=== PATIENT | female | born 1995 | race Caucasian/White ===

== ENCOUNTER 2017-02-21 23:56 | Emergency (ER) | payer OTHER ==
[2017-02-22] MEDS ORDERED: Ketorolac INJ* 30 MG/ML 1 ML VIAL IV PUSH ONE (00:30)
[2017-02-22] MEDS ORDERED: NS 0.9% 1000 ML* 1,000 ML IV ONE (00:30)
[2017-02-22 00:48] LABS: Hematocrit 34 % (35-47); Hemoglobin 11.1 g/dl (12.0-16.0); Mean Corpuscular HGB Conc 33 g/dl (31-36); Mean Corpuscular Hemoglobin 28 pg (27-31); Mean Corpuscular Volume 85 fL (80-97); Mean Platelet Volume 9 um3 (7.4-10.4); Red Blood Count 3.99 10^6/ul (4.0-5.4); Red Cell Distribution Width 14 % (10.5-15); White Blood Count 8.2 10^3/ul (3.5-10.8)
[2017-02-22 00:49] LABS: Potassium 3.4 mmol/L (3.5-5.0)
[2017-02-22 00:50] LABS: EGFR African American 138.6 (>60); EGFR Non-African American 107.8 (>60)
[2017-02-22 02:58] LABS: UR Preg Internal Control QC Line Present
[2017-02-22 03:01] LABS: Albumin 3.9 g/dL (3.2-5.2); Calcium 9.6 mg/dL (8.6-10.3); Globulin 3.5 g/dL (2-4); Total Bilirubin 0.5 mg/dL (0.2-1.0); Total Protein 7.4 g/dL (6.4-8.9)
[2017-02-22 03:01] LABS: Urine Bacteria 1+ (Absent); Urine Bilirubin Negative (Negative); Urine Glucose Negative (Negative); Urine Nitrite Negative (Negative)
--- NOTE | 2017-02-22 03:34 | ED ---
Merle Ross Rebecca, scribed for La Nena Ayers MD on 02/22/17 at 0031 . Abdominal Pain/Female - HPI Summary HPI Summary: Pt is a 21 y/o F accompanied by 2 friends who presents to ED c/o right-sided abdominal pain. Pain began suddenly at 1700 today and have been constant since onset, worsening at 2230. Pain is in the RUQ with radiation to the back, characterized as sharp. Currently ranked 5/10, though she notes extreme fluctuations in pain throughout the course. Sx aggravated and alleviated by nothing. Additionally c/o abdominal bloating and slight nausea earlier today. Denies constipation, vomiting. Last BM was yesterday, which she reports as normal. PMHx Celiac Disease and kidney stones. Is unsure if current presentation is similar to symptoms with previous kidney stone. Allergy to Sulfa Abx. - History of Current Complaint Chief Complaint: EDAbdPain Stated Complaint: ABD PAIN Time Seen by Provider: 02/22/17 00:25 Hx Obtained From: Patient Hx Last Menstrual Period: on continuous control, no menses ?: No Onset/Duration: Sudden Onset, Still Present, Worse Since - 2230 Timing: Constant Severity Initially: Moderate Severity Currently: Moderate Pain Intensity: 5 Pain Scale Used: 0-10 Numeric Location: Discrete At: RUQ Radiates: Yes Radiates to: Back Character: Sharp Aggravating Factor(s): Nothing Alleviating Factor(s): Nothing Associated Signs and Symptoms: Positive: Nausea, Other: - Abdominal bloating. Negative: Fever, Constipation, Vomiting, Diarrhea Allergies/Adverse Reactions: Allergies Allergy/AdvReac Type Severity Reaction Status Date / Time Gluten Meal Allergy Unknown Verified 02/22/17 00:21 Reaction Details Sulfa Antibiotics Allergy Unknown Verified 02/22/17 00:21 Reaction Details PMH/Surg Hx/FS Hx/Imm Hx Previously Healthy: Yes Endocrine/Hematology History: Denies: Hx Diabetes GI History: Reports: Other GI Disorders - Hx Celiac Disease dx after biopsy History: Reports: Hx Kidney Stones - Surgical History Surgery Procedure, Year, and Place: THUMB SX Infectious Disease History: No Infectious Disease History: Denies: Traveled Outside the [place] in Last 30 Days - Family History Known Family History: Positive: Diabetes, Other - Kidney stones (grandfather) - Social History Occupation: Student Alcohol Use: Occasionally Substance Use Type: Reports: None Hx Tobacco Use: No Smoking Status (MU): Never Smoked Tobacco Review of Systems Constitutional: Negative Cardiovascular: Negative Respiratory: Negative Positive: Abdominal Pain - RUQ with radiation to the back, Nausea, Other - Abdominal bloating. Negative: Vomiting Positive: other - Denies constipation. Negative: hematuria All Other Systems Reviewed And Are Negative: Yes Physical Exam Triage Information Reviewed: Yes Vital Signs On Initial Exam: Initial Vitals Temp Pulse Resp BP Pulse Ox 96.3 F 77 18 118/72 100 02/21/17 23:59 02/21/17 23:59 02/21/17 23:59 02/21/17 23:59 02/21/17 23:59 Vital Signs Reviewed: Yes Appearance: Positive: Well-Appearing, Well-Nourished, Pain Distress - Mild Skin: Positive: Warm, Skin Color Reflects Adequate Perfusion, Dry Eyes: Positive: Conjunctiva Clear ENT: Positive: Normal ENT inspection Respiratory/Lung Sounds: Positive: Clear to Auscultation, Breath Sounds Present , Other - No respiratory distress Cardiovascular: Positive: RRR, Other - Brisk capillary refill, normal pulses. Negative: Murmur Abdomen Description: Positive: No Organomegaly, Soft, CVA Tenderness (R). Negative: Nontender - Tendernessin the RUQ Bowel Sounds: Positive: Present Musculoskeletal: Positive: Strength/ROM Intact Neurological: Positive: Alert, Oriented to Person Place, Time, Other - Normal muscle tone. Negative: Facial Droop, Focal Deficit @, Slurred Speech Psychiatric: Positive: Normal Diagnostics - Vital Signs Vital Signs Temp Pulse Resp BP Pulse Ox 02/22/17 00:20 97.9 F 70 18 112/74 100 02/21/17 23:59 96.3 F 77 18 118/72 100 - Laboratory Lab Results: Lab Results 02/22/17 02/22/17 Range/Units 00:11 00:11 WBC 8.2 (3.5-10.8) 10^3/ul RBC 3.99 L (4.0-5.4) 10^6/ul Hgb 11.1 L (12.0-16.0) g/dl Hct 34 L (35-47) % MCV 85 (80-97) fL MCH 28 (27-31) pg MCHC 33 (31-36) g/dl RDW 14 (10.5-15) % Plt Count 333 (150-450) 10^3/ul MPV 9 (7.4-10.4) um3 Neut % (Auto) 40.5 (38-83) % Lymph % (Auto) 50.9 H (25-47) % [place] % (Auto) 5.7 (1-9) % Eos % (Auto) 2.1 (0-6) % Baso % (Auto) 0.8 (0-2) % Absolute Neuts (auto) 3.3 (1.5-7.7) 10^3/ul Absolute Lymphs (auto) 4.2 (1.0-4.8) 10^3/ul Absolute Monos (auto) 0.5 (0-0.8) 10^3/ul Absolute Eos (auto) 0.2 (0-0.6) 10^3/ul Absolute Basos (auto) 0.1 (0-0.2) 10^3/ul Absolute Nucleated RBC 0 10^3/ul Nucleated RBC % 0 Sodium 141 (133-145) mmol/L Potassium 3.4 L (3.5-5.0) mmol/L Chloride 102 (101-111) mmol/L Carbon Dioxide 25 (22-32) mmol/L Anion Gap 19 H (2-11) mmol/L BUN 7 (6-24) mg/dL Creatinine 0.70 (0.51-0.95) mg/dL Est GFR ( Amer) 138.6 (>60) Est GFR (Non-Af Amer) 107.8 (>60) BUN/Creatinine Ratio 10.0 (8-20) Glucose 97 (70-100) mg/dL Calcium Pending Total Bilirubin Pending AST Pending ALT Pending Alkaline Phosphatase Pending Total Protein Pending Albumin Pending Globulin Pending Albumin/Globulin Ratio Pending Result Diagrams: 02/22/17 00:11 02/22/17 00:11 Lab Statement: Any lab studies that have been ordered have been reviewed, and results considered in the medical decision making process. - CT CT Abd/Pel CT Interpretation Completed By: Radiologist - Large amount of diffuse colonic gas and scattered liquid stool could represent ileus and/or a diarrheal illness. Mild central canal narrowing at L4-5 degenerated disc herniation. Re-Evaluation - Re-Evaluation First Eval Re-Evaluation Time: 02:59 Change: Improved Comment: Discussed CT findings with the pt. Explained to pt that she can be D/C after UA has been performed. Reports pain has improved, currently 0/10. Abdominal Pain Fem Course/Dx - Course Course Of Treatment: Pt is a 21 y/o F accompanied by 2 friends with a CC of RUQ pain with radiation to the back since 1700 today, worsening at 2230. Additionally c/o abdominal cramping and slight nausea. Denies constipation, vomiting. Reports last BM was yesterday, which she states is normal. PMHx Celiac Disease and kidney stones (slightly over 1 year ago). FHx kidney stones ( grandfather). Pt medication list reviewed this visit. Allergies noted. Anion gap [address] Abd/Pel reveals "Large amount of diffuse colonic gas and scattered liquid stool could represent ileus and/or a diarrheal illness. Mild central canal narrowing at L4-5 degenerated disc herniation." UA revealed: appearance: cloudy, color: yellow, blood: 2+, leukocyte esterase: 1+, bacteria: 1+, hyaline casts: present H. Pt was administered Toradol in the course of the ED. Pt will be D/C to home with Dx of abdominal pain and ileus with a follow up with her PCP. - Diagnoses Differential Diagnosis: Positive: Appendicitis, Bowel Obstruction, Gall Bladder Disease, Peptic Ulcer Disease, Renal Colic, Urinary Tract Infection Provider Diagnoses: Abdominal pain, Ileus, Hematuria Discharge - Discharge Plan Condition: Stable Disposition: HOME Patient Education Materials: Hematuria (ED), Abdominal Pain (ED), Ileus (ED) Referrals: [facility] [Primary Care Provider] - 2 Days Additional Instructions: You were given 30 mg of Toradol IV with complete relief of your pain. Your CT shows an ileus, but no kidney stone. Your urine shows some blood and some white blood cells so you may have a urinary tract infection. We will contact you if you need antibiotics based on the urine culture. You will also need to follow up as to the cause of the hidden blood in your urine. Return to the ED for any new or worsening symptoms. The documentation as recorded by the Merle wright Rebecca accurately reflects the service I personally performed and the decisions made by , La Nena Ayers MD.
[2017-02-22 04:39] VITALS: BP 96/50
--- NOTE | 2017-02-22 07:58 | RAD ---
CLINICAL HISTORY: Right flank pain COMPARISON: Similar examination dated November 18, 2015 TECHNIQUE: Noncontrast CT examination of the abdomen and pelvis from the lung bases through the initial tuberosities. FINDINGS: VISUALIZED LUNG BASES: The visualized lung bases are grossly clear. There is no pleural effusion. ABDOMEN AND PELVIS: Evaluation of the solid organs and vasculature is limited without intravenous contrast. The liver, spleen, pancreas and adrenal glands are grossly normal in appearance. The gallbladder is normal. At the lower pole the right kidney there is a stable fluid density structure with a small amount of hyperdense material in the dependent portion. Otherwise the kidneys are normal in appearance without focal mass, calcification or signs of hydronephrosis. The small bowel is not distended.The patient's normal appendix is identified in the right lower quadrant with gas in the lumen measuring 6 mm in diameter (axial image 99 and coronal image 35). There is mild dilatation throughout the length of the colon, though not to a pathologic degree. The transverse colon exhibits a maximum diameter of 5.4 cm. There is a large amount of gas seen throughout the colon with air-fluid levels at the cecum. There is no pathologic bowel wall thickening or significant pericolonic fat stranding. There is no gross retroperitoneal or mesenteric lymphadenopathy. The pelvic viscera is normal in appearance. The abdominal aorta and iliac arteries are normal in course and diameter. There is loss of intervertebral disc height at L5/S1 with the appearance of mild broad-based disc protrusion at this level.There are no sinister bone lesions. IMPRESSION: 1. There are no renal calculi or signs of hydroureteronephrosis bilaterally. 2. The gas-filled colon is minimally distended, but not to a pathologic degree.
== END 2017-02-22 04:35 | disposition home or self-care (01) ==
LOC: ED 23:56
DX: R10.11 Right upper quadrant pain (principal); K56.7 Ileus, unspecified; R10.9 Unspecified abdominal pain; R31.9 Hematuria, unspecified; R11.0 Nausea
CPT/HCPCS: 36415; 74176; 80053; 81003; 81015; 81025; 85025; 87086; 99283; J1885

== ENCOUNTER 2017-09-10 22:01 | Inpatient (IN) | payer OTHER ==
[2017-09-10] MEDS ORDERED: NS 0.9% 1000 ML* 1,000 ML IV ONE (22:45)
[2017-09-10] MEDS ORDERED: LORazepam INJ* 2 MG/ML 1 ML VIAL IV ONE (22:45)
[2017-09-10 23:25] LABS: Hematocrit 34 % (35-47); Hemoglobin 11.6 g/dl (12.0-16.0); Mean Corpuscular HGB Conc 34 g/dl (31-36); Mean Corpuscular Hemoglobin 31 pg (27-31); Mean Corpuscular Volume 91 fL (80-97); Mean Platelet Volume 9 um3 (7.4-10.4); Red Blood Count 3.77 10^6/ul (4.0-5.4); Red Cell Distribution Width 14 % (10.5-15); White Blood Count 7.9 10^3/ul (3.5-10.8)
[2017-09-10 23:40] LABS: ALT 8 U/L (7-52); AST 15 U/L (13-39); Acetaminophen < 15 mcg/mL; Albumin 3.7 g/dL (3.2-5.2); Alcohol < 10 mg/dL (<10); Alkaline Phosphatase 40 U/L (34-104); Anion Gap 7 mmol/L (2-11); BUN/Creatinine Ratio 8.7 (8-20); Blood Urea Nitrogen 6 mg/dL (6-24); CO2 Carbon Dioxide 23 mmol/L (22-32); Calcium 8.4 mg/dL (8.6-10.3); Chloride 103 mmol/L (101-111); EGFR African American 139.5 (>60); EGFR Non-African American 108.5 (>60); Globulin 2.9 g/dL (2-4); Glucose 74 mg/dL (70-100); Magnesium 1.6 mg/dL (1.9-2.7); Potassium 3.3 mmol/L (3.5-5.0); Salicylate < 2.50 mg/dL (<30); Sodium 133 mmol/L (133-145); Total Protein 6.6 g/dL (6.4-8.9)
[2017-09-10 23:54] LABS: TSH (Thyroid Stimulating Horm) 28.71 mcIU/mL (0.34-5.60)
[2017-09-11 00:08] LABS: Urine Bacteria 1+ (Absent); Urine Bilirubin Negative (Negative); Urine Glucose Negative (Negative); Urine Nitrite Negative (Negative)
[2017-09-11 00:13] LABS: PCO2 Arterial 33 mmHg (35-45)
[2017-09-11] MEDS ORDERED: Cephalexin CAP* 500 MG PO ONE (00:29)
[2017-09-11 00:58] LABS: Benzodiazepine Urine Screen None Detected (None Detect)
[2017-09-11] MEDS ORDERED: Potassium Chlor TAB* 20 MEQ TAB.ER PO ONE (02:04)
--- NOTE | 2017-09-11 02:05 | ED ---
Mert Ross Benjamin, scribed for Sánchez Franco MD on 09/10/17 at 2314 . Substance Abuse/Use - HPI Summary HPI Summary: 22yo female BIBA for overdosing on Benadryl. Pt reportedly took between 900- 1200mg Benadryl. Pt denies any pain. Denies N/V. Per friend, pt was also hallucinating. - History Of Current Complaint Chief Complaint: EDOverdose Stated Complaint: OVERDOSE Hx Obtained From: Patient, Other: - roommate Hx Last Menstrual Period: on continuous control, no menses ?: No Ingestion History: Type/Name Of Drug - Benadryl, Amount Ingested - 900-1200mg Overdose Characteristics: Oral Timing Of Abuse: Binge Use Severity Initially: Moderate Severity Currently: Moderate Aggravating Factor(s): Recent Stress Alleviating Factor(s): Nothing Associated Signs And Symptoms: Hallucinating Related Hx: Suicidal - Allergies/Home Medications Allergies/Adverse Reactions: Allergies Allergy/AdvReac Type Severity Reaction Status Date / Time Gluten Meal Allergy Unknown Verified 02/22/17 00:21 Reaction Details Sulfa Antibiotics Allergy Unknown Verified 02/22/17 00:21 Reaction Details PMH/Surg Hx/FS Hx/Imm Hx Endocrine/Hematology History: Denies: Hx Diabetes GI History: Reports: Other GI Disorders - Hx Celiac Disease dx after biopsy History: Reports: Hx Kidney Stones - Surgical History Surgery Procedure, Year, and Place: THUMB SX Infectious Disease History: No Infectious Disease History: Denies: Traveled Outside the [place] in Last 30 Days - Family History Known Family History: Positive: Diabetes, Other - Kidney stones (grandfather) - Social History Occupation: Student Lives: Dormitory/Roommates Alcohol Use: Occasionally Substance Use Type: Reports: None Hx Tobacco Use: No Smoking Status (MU): Never Smoked Tobacco Review of Systems Constitutional: Negative Eyes: Negative ENT: Negative Cardiovascular: Negative Negative: Chest Pain Respiratory: Negative Negative: Shortness Of Breath Gastrointestinal: Negative Genitourinary: Negative Musculoskeletal: Negative Skin: Negative Neurological: Negative Positive: Depressed, Other - SI All Other Systems Reviewed And Are Negative: Yes Physical Exam - Summary Physical Exam Summary: Appearance: Slightly confused appearance, slowed speech. Skin: Mild cyanosis of the tips of the fingers bilaterally. No perioral cyanosis. No erythema. Eyes: EOMI SHIRA. Pulpils are 4mm dilated and brisk ENT: Normal Neck: Supple, nontender. No neck masses. Respiratory: Clear to auscultation Cardiovascular: Tachycardic on monitor. normal S1 and S2. Abdomen: Soft, nontender Bowel: Present Musculoskeletal: Normal, Strength/ROM Intact. Moving all four extremities. Neurological: Normal, A&Ox3. Able to follow commands. Slightly confused. Slightly hesitant to speak. Psychiatric: Normal Triage Information Reviewed: Yes Vital Signs On Initial Exam: Initial Vitals BP 132/92 09/10/17 22:09 Vital Signs Reviewed: Yes - Joey Coma Scale Coma Scale Total: 15 Diagnostics - Vital Signs Vital Signs Temp Pulse Resp BP Pulse Ox 09/10/17 22:11 99.2 F 115 15 132/92 100 09/10/17 22:10 109 100 09/10/17 22:09 132/92 - Laboratory Lab Results: Lab Results 09/10/17 09/10/17 09/10/17 Range/Units 23:11 23:11 23:11 WBC 7.9 (3.5-10.8) 10^3/ul RBC 3.77 L (4.0-5.4) 10^6/ul Hgb 11.6 L (12.0-16.0) g/dl Hct 34 L (35-47) % MCV 91 (80-97) fL MCH 31 (27-31) pg MCHC 34 (31-36) g/dl RDW 14 (10.5-15) % Plt Count 278 (150-450) 10^3/ul MPV 9 (7.4-10.4) um3 Neut % (Auto) 63.7 (38-83) % Lymph % (Auto) 29.4 (25-47) % Mora % (Auto) 5.1 (1-9) % Eos % (Auto) 1.0 (0-6) % Baso % (Auto) 0.8 (0-2) % Absolute Neuts (auto) 5.1 (1.5-7.7) 10^3/ul Absolute Lymphs (auto) 2.3 (1.0-4.8) 10^3/ul Absolute Monos (auto) 0.4 (0-0.8) 10^3/ul Absolute Eos (auto) 0.1 (0-0.6) 10^3/ul Absolute Basos (auto) 0.1 (0-0.2) 10^3/ul Absolute Nucleated RBC 0 10^3/ul Nucleated RBC % 0 ABG pH (7.35-7.45) ABG pCO2 (35-45) mmHg ABG pO2 (80-100) mmHg ABG HCO3 (19-31) mmol/L ABG O2 Saturation (95-98) % ABG Base Excess (-2.0-2.0) Methemoglobin 0.5 (LESS THAN 2) % Sodium 133 (133-145) mmol/L Potassium 3.3 L (3.5-5.0) mmol/L Chloride 103 (101-111) mmol/L Carbon Dioxide 23 (22-32) mmol/L Anion Gap 7 (2-11) mmol/L BUN 6 (6-24) mg/dL Creatinine 0.69 (0.51-0.95) mg/dL Est GFR ( Amer) 139.5 (>60) Est GFR (Non-Af Amer) 108.5 (>60) BUN/Creatinine Ratio 8.7 (8-20) Glucose 74 (70-100) mg/dL Lactic Acid 1.7 (0.5-2.0) mmol/L Calcium 8.4 L (8.6-10.3) mg/dL Magnesium 1.6 L (1.9-2.7) mg/dL Total Bilirubin 0.90 (0.2-1.0) mg/dL AST 15 (13-39) U/L ALT 8 (7-52) U/L Alkaline Phosphatase 40 (34-104) U/L Total Protein 6.6 (6.4-8.9) g/dL Albumin 3.7 (3.2-5.2) g/dL Globulin 2.9 (2-4) g/dL Albumin/Globulin Ratio 1.3 (1-3) TSH 28.71 H (0.34-5.60) mcIU/mL Beta HCG, Quant < 0.60 mIU/mL Urine Color Urine Appearance Urine pH (5-9) Ur Specific Newton (1.010-1.030) Urine Protein (Negative) Urine Ketones (Negative) Urine Blood (Negative) Urine Nitrate (Negative) Urine Bilirubin (Negative) Urine Urobilinogen (Negative) Ur Leukocyte Esterase (Negative) Urine WBC (Auto) (Absent) Urine RBC (Auto) (Absent) Ur Squamous Epith Cells (Absent) Urine Bacteria (Absent) Urine Glucose (Negative) Salicylates < 2.50 (<30) mg/dL Urine Opiates Screen (None Detect) Acetaminophen < 15 mcg/mL Ur Barbiturates Screen (None Detect) Ur Phencyclidine Scrn (None Detect) Ur Amphetamines Screen (None Detect) U Benzodiazepines Scrn (None Detect) Urine Cocaine Screen (None Detect) U Cannabinoids Screen (None Detect) Serum Alcohol < 10 (<10) mg/dL 09/10/17 09/10/17 09/11/17 Range/Units 23:43 23:43 00:04 WBC (3.5-10.8) 10^3/ul RBC (4.0-5.4) 10^6/ul Hgb (12.0-16.0) g/dl Hct (35-47) % MCV (80-97) fL MCH (27-31) pg MCHC (31-36) g/dl RDW (10.5-15) % Plt Count (150-450) 10^3/ul MPV (7.4-10.4) um3 Neut % (Auto) (38-83) % Lymph % (Auto) (25-47) % Mora % (Auto) (1-9) % Eos % (Auto) (0-6) % Baso % (Auto) (0-2) % Absolute Neuts (auto) (1.5-7.7) 10^3/ul Absolute Lymphs (auto) (1.0-4.8) 10^3/ul Absolute Monos (auto) (0-0.8) 10^3/ul Absolute Eos (auto) (0-0.6) 10^3/ul Absolute Basos (auto) (0-0.2) 10^3/ul Absolute Nucleated RBC 10^3/ul Nucleated RBC % ABG pH 7.45 (7.35-7.45) ABG pCO2 33 L (35-45) mmHg ABG pO2 101 H (80-100) mmHg ABG HCO3 24.5 (19-31) mmol/L ABG O2 Saturation 98.1 H (95-98) % ABG Base Excess -0.6 (-2.0-2.0) Methemoglobin (LESS THAN 2) % Sodium (133-145) mmol/L Potassium (3.5-5.0) mmol/L Chloride (101-111) mmol/L Carbon Dioxide (22-32) mmol/L Anion Gap (2-11) mmol/L BUN (6-24) mg/dL Creatinine (0.51-0.95) mg/dL Est GFR ( Amer) (>60) Est GFR (Non-Af Amer) (>60) BUN/Creatinine Ratio (8-20) Glucose (70-100) mg/dL Lactic Acid (0.5-2.0) mmol/L Calcium (8.6-10.3) mg/dL Magnesium (1.9-2.7) mg/dL Total Bilirubin (0.2-1.0) mg/dL AST (13-39) U/L ALT (7-52) U/L Alkaline Phosphatase (34-104) U/L Total Protein (6.4-8.9) g/dL Albumin (3.2-5.2) g/dL Globulin (2-4) g/dL Albumin/Globulin Ratio (1-3) TSH (0.34-5.60) mcIU/mL Beta HCG, Quant mIU/mL Urine Color Yellow Urine Appearance Cloudy Urine pH 7.0 (5-9) Ur Specific [place] 1.011 (1.010-1.030) Urine Protein Negative (Negative) Urine Ketones Negative (Negative) Urine Blood 1+ H (Negative) Urine Nitrate Negative (Negative) Urine Bilirubin Negative (Negative) Urine Urobilinogen Negative (Negative) Ur Leukocyte Esterase 3+ H (Negative) Urine WBC (Auto) 3+(>20/hpf) H (Absent) Urine RBC (Auto) 1+(3-5/hpf) H (Absent) Ur Squamous Epith Cells Present H (Absent) Urine Bacteria 1+ H (Absent) Urine Glucose Negative (Negative) Salicylates (<30) mg/dL Urine Opiates Screen None detected (None Detect) Acetaminophen mcg/mL Ur Barbiturates Screen None detected (None Detect) Ur Phencyclidine Scrn None detected (None Detect) Ur Amphetamines Screen None detected (None Detect) U Benzodiazepines Scrn None detected (None Detect) Urine Cocaine Screen None detected (None Detect) U Cannabinoids Screen None detected (None Detect) Serum Alcohol (<10) mg/dL Result Diagrams: 09/10/17 23:11 09/10/17 23:11 Lab Statement: Any lab studies that have been ordered have been reviewed, and results considered in the medical decision making process. - CT CT Brain CT Interpretation: No Acute Changes CT Interpretation Completed By: Radiologist - ED physician has reviewed this radiology report and agrees. - EKG 2252. Cardiac Rate: Tachycardia EKG Rhythm: Sinus Tachycardia - 107bpm EKG Interpretation: borderline T wave abnormalities, borderline prolonged QT interval Re-Evaluation - Re-Evaluation First Eval Re-Evaluation Time: 02:02 - persistent tachycardia, unchanged mental status Change: Improved Course/Dx - Course Course Of Treatment: admitetd for futher treatment and monitoring. CT negative, labs show no acute abnormalities. 6-12 hour obs according to [facility]. - Diagnoses Provider Diagnoses: Altered mental status, Overdose - Physician Notifications Discussed Care Of Patient With: Yaakov Collier Time Discussed With Above Provider: 02:05 Discharge - Discharge Plan Condition: Guarded Disposition: ADMITTED TO [facility] Referrals: [facility],[place] [Medical Doctor] - The documentation as recorded by the Mert wright Benjamin accurately reflects the service I personally performed and the decisions made by me, Sánchez Franco MD.
[2017-09-11] MEDS ORDERED: Acetaminophen TAB* 325 MG PO PRN (02:08)
[2017-09-11] MEDS ORDERED: LORazepam INJ* 2 MG/ML 1 ML VIAL IV PRN (02:08)
[2017-09-11] MEDS ORDERED: Magnesium Sulfate IV* 3 GM in NS 0.9% 100 ML* 100 ML IVPB ONE (02:08)
[2017-09-11] MEDS ORDERED: Magnesium Sulfate 1 GM IV* 1 GM/100 ML BAG IV ONE (04:30)
[2017-09-11] MEDS ORDERED: Magnesium Sulfate 2 GM IV IVPB ONE (05:00)
--- NOTE | 2017-09-11 05:03 | HP ---
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 She is accompanied by her roommate who gives this information, in addition to ED staff. Deni reportedly had a falling out with a male friend, purchased 5-6 boxes of 12 pills each of Zzzquil (25mg diphenhydramine tablets) and consumed them all at ~2030. By 2100 she had called her father in [place] who then called EMS and spoke with her roommate. Ms Caceres is lying in her ED bed varying between staring into space, startling easily, and reacting to/interacting with visual hallucinations. Her speech is stuttering and completely incoherent. PMedHx depression, unknown if prior suicide attempts Ambulatory Orders Nursing to reconcile. Levofloxacin TAB* [Levaquin TAB*] 750 mg PO DAILY #10 tab 11/18/15 Ondansetron ODT TAB* [Zofran Odt TAB*] 4 mg PO Q6H PRN #20 tab.odt 11/18/15 oxyCODONE/Acetamin 5/325 MG* [Percocet 5/325 TAB*] 1 tab PO Q4H PRN #20 tab MDD 6 11/18/15 Allergies Gluten Meal Allergy (Verified 02/22/17 00:21) Unknown Reaction Details Sulfa Antibiotics Allergy (Verified 02/22/17 00:21) Unknown Reaction Details PSurgHx unobtainable SocHx: [employer] student; single, no children, lives with a roommate; full code status; otherwise unobtainable FamHx: unobtainable ROS: as above, otherwise reviewed and all were negative vitals: Vital Signs Temp 36.6 C 09/11/17 03:50 Pulse 123 09/11/17 03:50 Resp 28 09/11/17 03:50 BP 127/79 09/11/17 03:50 Pulse Ox 100 09/11/17 03:50 Intake & Output 09/10/17 09/10/17 09/11/17 11:59 23:59 11:59 Intake Total 1000 Balance 1000 Weight 54.431 kg 53.206 kg Intake: IV Fluids 1000 Constitutional: NAD, normally developed, well-nourished white female HEENM: atraumatic; sclera/conjunctiva: anicteric/clear; hearing: unable to accurately assess; oropharynx: clear, mucosa tacky Neck: soft tissue: non-tender; thyroid: normal Pulmonary: clear to auscultation bilaterally, good aeration, no accessory muscle use CV: RR/RR, normal S1S2, no carotid bruit, no jugular venous distention, 2+ B DP/ PT, no edema Abdominal: soft, non-distended, non-tender, no rebound/guarding/rigidity, normoactive bowel sounds, no hepatosplenomegaly or masses, no costovertebral angle tenderness Musculoskeletal: general: grossly intact, no palpable tenderness Integumental: normal appearance and texture of exposed skin, no flushing noted Psychiatric orientation: alert, awake, disoriented affect: fidgety mood: calm to anxious eye contact: poor content: absent insight: currently absent Testing: Lab Results 09/10/17 09/10/17 09/10/17 Range/Units 23:11 23:11 23:11 WBC 7.9 (3.5-10.8) 10^3/ul RBC 3.77 L (4.0-5.4) 10^6/ul Hgb 11.6 L (12.0-16.0) g/dl Hct 34 L (35-47) % MCV 91 (80-97) fL MCH 31 (27-31) pg MCHC 34 (31-36) g/dl RDW 14 (10.5-15) % Plt Count 278 (150-450) 10^3/ul MPV 9 (7.4-10.4) um3 Neut % (Auto) 63.7 (38-83) % Lymph % (Auto) 29.4 (25-47) % [place] % (Auto) 5.1 (1-9) % Eos % (Auto) 1.0 (0-6) % Baso % (Auto) 0.8 (0-2) % Absolute Neuts (auto) 5.1 (1.5-7.7) 10^3/ul Absolute Lymphs (auto) 2.3 (1.0-4.8) 10^3/ul Absolute Monos (auto) 0.4 (0-0.8) 10^3/ul Absolute Eos (auto) 0.1 (0-0.6) 10^3/ul Absolute Basos (auto) 0.1 (0-0.2) 10^3/ul Absolute Nucleated RBC 0 10^3/ul Nucleated RBC % 0 ABG pH (7.35-7.45) ABG pCO2 (35-45) mmHg ABG pO2 (80-100) mmHg ABG HCO3 (19-31) mmol/L ABG O2 Saturation (95-98) % ABG Base Excess (-2.0-2.0) Methemoglobin 0.5 (LESS THAN 2) % Sodium 133 (133-145) mmol/L Potassium 3.3 L (3.5-5.0) mmol/L Chloride 103 (101-111) mmol/L Carbon Dioxide 23 (22-32) mmol/L Anion Gap 7 (2-11) mmol/L BUN 6 (6-24) mg/dL Creatinine 0.69 (0.51-0.95) mg/dL Est GFR ( Amer) 139.5 (>60) Est GFR (Non-Af Amer) 108.5 (>60) BUN/Creatinine Ratio 8.7 (8-20) Glucose 74 (70-100) mg/dL POC Glucose (mg/dL) (70-100) mg/dL Lactic Acid 1.7 (0.5-2.0) mmol/L Calcium 8.4 L (8.6-10.3) mg/dL Magnesium 1.6 L (1.9-2.7) mg/dL Total Bilirubin 0.90 (0.2-1.0) mg/dL AST 15 (13-39) U/L ALT 8 (7-52) U/L Alkaline Phosphatase 40 (34-104) U/L Total Protein 6.6 (6.4-8.9) g/dL Albumin 3.7 (3.2-5.2) g/dL Globulin 2.9 (2-4) g/dL Albumin/Globulin Ratio 1.3 (1-3) TSH 28.71 H (0.34-5.60) mcIU/mL Beta HCG, Quant < 0.60 mIU/mL Urine Color Urine Appearance Urine pH (5-9) Ur Specific [place] (1.010-1.030) Urine Protein (Negative) Urine Ketones (Negative) Urine Blood (Negative) Urine Nitrate (Negative) Urine Bilirubin (Negative) Urine Urobilinogen (Negative) Ur Leukocyte Esterase (Negative) Urine WBC (Auto) (Absent) Urine RBC (Auto) (Absent) Ur Squamous Epith Cells (Absent) Urine Bacteria (Absent) Urine Glucose (Negative) Salicylates < 2.50 (<30) mg/dL Urine Opiates Screen (None Detect) Acetaminophen < 15 mcg/mL Ur Barbiturates Screen (None Detect) Ur Phencyclidine Scrn (None Detect) Ur Amphetamines Screen (None Detect) U Benzodiazepines Scrn (None Detect) Urine Cocaine Screen (None Detect) U Cannabinoids Screen (None Detect) Serum Alcohol < 10 (<10) mg/dL 09/10/17 09/10/17 09/11/17 Range/Units 23:43 23:43 00:04 WBC (3.5-10.8) 10^3/ul RBC (4.0-5.4) 10^6/ul Hgb (12.0-16.0) g/dl Hct (35-47) % MCV (80-97) fL MCH (27-31) pg MCHC (31-36) g/dl RDW (10.5-15) % Plt Count (150-450) 10^3/ul MPV (7.4-10.4) um3 Neut % (Auto) (38-83) % Lymph % (Auto) (25-47) % [place] % (Auto) (1-9) % Eos % (Auto) (0-6) % Baso % (Auto) (0-2) % Absolute Neuts (auto) (1.5-7.7) 10^3/ul Absolute Lymphs (auto) (1.0-4.8) 10^3/ul Absolute Monos (auto) (0-0.8) 10^3/ul Absolute Eos (auto) (0-0.6) 10^3/ul Absolute Basos (auto) (0-0.2) 10^3/ul Absolute Nucleated RBC 10^3/ul Nucleated RBC % ABG pH 7.45 (7.35-7.45) ABG pCO2 33 L (35-45) mmHg ABG pO2 101 H (80-100) mmHg ABG HCO3 24.5 (19-31) mmol/L ABG O2 Saturation 98.1 H (95-98) % ABG Base Excess -0.6 (-2.0-2.0) Methemoglobin (LESS THAN 2) % Sodium (133-145) mmol/L Potassium (3.5-5.0) mmol/L Chloride (101-111) mmol/L Carbon Dioxide (22-32) mmol/L Anion Gap (2-11) mmol/L BUN (6-24) mg/dL Creatinine (0.51-0.95) mg/dL Est GFR ( Amer) (>60) Est GFR (Non-Af Amer) (>60) BUN/Creatinine Ratio (8-20) Glucose (70-100) mg/dL POC Glucose (mg/dL) (70-100) mg/dL Lactic Acid (0.5-2.0) mmol/L Calcium (8.6-10.3) mg/dL Magnesium (1.9-2.7) mg/dL Total Bilirubin (0.2-1.0) mg/dL AST (13-39) U/L ALT (7-52) U/L Alkaline Phosphatase (34-104) U/L Total Protein (6.4-8.9) g/dL Albumin (3.2-5.2) g/dL Globulin (2-4) g/dL Albumin/Globulin Ratio (1-3) TSH (0.34-5.60) mcIU/mL Beta HCG, Quant mIU/mL Urine Color Yellow Urine Appearance Cloudy Urine pH 7.0 (5-9) Ur Specific [place] 1.011 (1.010-1.030) Urine Protein Negative (Negative) Urine Ketones Negative (Negative) Urine Blood 1+ H (Negative) Urine Nitrate Negative (Negative) Urine Bilirubin Negative (Negative) Urine Urobilinogen Negative (Negative) Ur Leukocyte Esterase 3+ H (Negative) Urine WBC (Auto) 3+(>20/hpf) H (Absent) Urine RBC (Auto) 1+(3-5/hpf) H (Absent) Ur Squamous Epith Cells Present H (Absent) Urine Bacteria 1+ H (Absent) Urine Glucose Negative (Negative) Salicylates (<30) mg/dL Urine Opiates Screen None detected (None Detect) Acetaminophen mcg/mL Ur Barbiturates Screen None detected (None Detect) Ur Phencyclidine Scrn None detected (None Detect) Ur Amphetamines Screen None detected (None Detect) U Benzodiazepines Scrn None detected (None Detect) Urine Cocaine Screen None detected (None Detect) U Cannabinoids Screen None detected (None Detect) Serum Alcohol (<10) mg/dL 09/11/17 Range/Units 02:32 WBC (3.5-10.8) 10^3/ul RBC (4.0-5.4) 10^6/ul Hgb (12.0-16.0) g/dl Hct (35-47) % MCV (80-97) fL MCH (27-31) pg MCHC (31-36) g/dl RDW (10.5-15) % Plt Count (150-450) 10^3/ul MPV (7.4-10.4) um3 Neut % (Auto) (38-83) % Lymph % (Auto) (25-47) % [place]uce % (Auto) (1-9) % Eos % (Auto) (0-6) % Baso % (Auto) (0-2) % Absolute Neuts (auto) (1.5-7.7) 10^3/ul Absolute Lymphs (auto) (1.0-4.8) 10^3/ul Absolute Monos (auto) (0-0.8) 10^3/ul Absolute Eos (auto) (0-0.6) 10^3/ul Absolute Basos (auto) (0-0.2) 10^3/ul Absolute Nucleated RBC 10^3/ul Nucleated RBC % ABG pH (7.35-7.45) ABG pCO2 (35-45) mmHg ABG pO2 (80-100) mmHg ABG HCO3 (19-31) mmol/L ABG O2 Saturation (95-98) % ABG Base Excess (-2.0-2.0) Methemoglobin (LESS THAN 2) % Sodium (133-145) mmol/L Potassium (3.5-5.0) mmol/L Chloride (101-111) mmol/L Carbon Dioxide (22-32) mmol/L Anion Gap (2-11) mmol/L BUN (6-24) mg/dL Creatinine (0.51-0.95) mg/dL Est GFR ( Amer) (>60) Est GFR (Non-Af Amer) (>60) BUN/Creatinine Ratio (8-20) Glucose (70-100) mg/dL POC Glucose (mg/dL) 85 (70-100) mg/dL Lactic Acid (0.5-2.0) mmol/L Calcium (8.6-10.3) mg/dL Magnesium (1.9-2.7) mg/dL Total Bilirubin (0.2-1.0) mg/dL AST (13-39) U/L ALT (7-52) U/L Alkaline Phosphatase (34-104) U/L Total Protein (6.4-8.9) g/dL Albumin (3.2-5.2) g/dL Globulin (2-4) g/dL Albumin/Globulin Ratio (1-3) TSH (0.34-5.60) mcIU/mL Beta HCG, Quant mIU/mL Urine Color Urine Appearance Urine pH (5-9) Ur Specific [place] (1.010-1.030) Urine Protein (Negative) Urine Ketones (Negative) Urine Blood (Negative) Urine Nitrate (Negative) Urine Bilirubin (Negative) Urine Urobilinogen (Negative) Ur Leukocyte Esterase (Negative) Urine WBC (Auto) (Absent) Urine RBC (Auto) (Absent) Ur Squamous Epith Cells (Absent) Urine Bacteria (Absent) Urine Glucose (Negative) Salicylates (<30) mg/dL Urine Opiates Screen (None Detect) Acetaminophen mcg/mL Ur Barbiturates Screen (None Detect) Ur Phencyclidine Scrn (None Detect) Ur Amphetamines Screen (None Detect) U Benzodiazepines Scrn (None Detect) Urine Cocaine Screen (None Detect) U Cannabinoids Screen (None Detect) Serum Alcohol (<10) mg/dL ECG, personally reviewed: sinus tachycardia rate 107, no ischemia, QTc 483 (4hr recheck QTc 443) CT brain WO, personally reviewed: IMPRESSION: Normal head. Impression: 22F presenting with diphenhydramine OD estimated to be 1500-1800mg DIAGNOSIS & PLAN Primary diphenhydramine OD : IVFs : serial ECGs to monitor QTc : one-to-one monitoring : psychiatric evaluation ordered for when medically cleared : supportive care Admission Rational: inpatient for suicidal gesture with profoundly altered mental status, tachycardia; requiring 1:1 monitoring DVTp: KEYANNA Code Status: full
[2017-09-11] MEDS ORDERED: Omeprazole CAP* 20 MG PO SCH (06:00)
[2017-09-11 06:40] LABS: Hematocrit 35 % (35-47); Hemoglobin 11.7 g/dl (12.0-16.0); Mean Corpuscular HGB Conc 33 g/dl (31-36); Mean Corpuscular Hemoglobin 30 pg (27-31); Mean Corpuscular Volume 91 fL (80-97); Mean Platelet Volume 9 um3 (7.4-10.4); Red Cell Distribution Width 14 % (10.5-15); White Blood Count 10.4 10^3/ul (3.5-10.8)
[2017-09-11 06:54] LABS: BUN/Creatinine Ratio 7.6 (8-20); EGFR African American 119.3 (>60); EGFR Non-African American 92.8 (>60); Potassium 3.5 mmol/L (3.5-5.0)
--- NOTE | 2017-09-11 08:15 | RAD ---
HISTORY: Altered mental status COMPARISONS: None TECHNIQUE: Multiple contiguous axial CT scans were obtained of the head without intravenous contrast. FINDINGS: HEMORRHAGE/INFARCT: There is no hemorrhage or acute infarct. MASSES/SHIFT: There is no mass or shift. EXTRA-AXIAL SPACES: There are no extra-axial fluid collections. SULCI AND VENTRICLES: The sulci and ventricles are normal in size and position for the patient's stated age. CEREBRUM: There are no focal parenchymal abnormalities. BRAINSTEM: There are no focal parenchymal abnormalities. CEREBELLUM: There are no focal parenchymal abnormalities. VESSELS: The vessels are grossly normal. PARANASAL SINUSES: The paranasal sinuses are clear. ORBITS: The orbits are unremarkable. BONES AND SOFT TISSUE: No bone or soft tissue abnormalities are noted. OTHER: None IMPRESSION: NO ACUTE INTRACRANIAL PATHOLOGY.
[2017-09-11] MEDS ORDERED: Docusate CAP* 100 MG PO SCH (09:00)
--- NOTE | 2017-09-11 12:06 | PN ---
Subjective Date of Service: 09/11/17 Interval History: Pt is feeling ok. She denies any pain. No SOB. She is able to tell me why she is here. She states she thinks she took about 40 tablets of benadryl. Nursing notes the patient in general is very confused and having some hallucinations. Objective Active Medications: Acetaminophen (Tylenol Tab*) 650 mg PO Q6H PRN PRN Reason: FEVER/PAIN Docusate Sodium (Colace Cap*) 200 mg PO BID [facility] Last Admin: 09/11/17 10:00 Dose: 200 mg Lactated Ringer's (Lactated Ringers 1000 Ml Bag*) 1,000 mls @ 125 mls/hr IV PER RATE [facility] Lorazepam (Ativan Inj*) 1 mg IV Q6H PRN PRN Reason: AGITATION Last Admin: 09/11/17 10:01 Dose: 1 mg Omeprazole (Prilosec Cap*) 20 mg PO DAILY@0600 [facility] Last Admin: 09/11/17 06:06 Dose: 20 mg Vital Signs - 8 hr 09/11/17 09/11/17 05:16 10:01 Temperature 98.1 F Pulse Rate 116 Respiratory 26 18 Rate Blood Pressure 133/69 (mmHg) O2 Sat by Pulse 99 Oximetry Oxygen Devices in Use Now: None Appearance: Young female sitting up in bed, talking with her 1:1 monitor, NAD Eyes: - - very dilated pupils Respiratory: Symmetrical Chest Expansion and Respiratory Effort, Clear to Auscultation Cardiovascular: NL Sounds; No Murmurs; No JVD, - - tachycardic but regular Abdominal: NL Sounds; No Tenderness; No Distention Extremities: No Clubbing, Cyanosis Skin: No Rash or Ulcers, No Nodules or Sclerosis Neurological: - - alert, mostly oriented to situation Result Diagrams: 09/11/17 06:24 09/11/17 06:24 Additional Lab and Data: Lab Results 09/10/17 09/10/17 09/10/17 Range/Units 23:11 23:11 23:11 WBC 7.9 (3.5-10.8) 10^3/ul RBC 3.77 L (4.0-5.4) 10^6/ul Hgb 11.6 L (12.0-16.0) g/dl Hct 34 L (35-47) % MCV 91 (80-97) fL MCH 31 (27-31) pg MCHC 34 (31-36) g/dl RDW 14 (10.5-15) % Plt Count 278 (150-450) 10^3/ul MPV 9 (7.4-10.4) um3 Neut % (Auto) 63.7 (38-83) % Lymph % (Auto) 29.4 (25-47) % [place] % (Auto) 5.1 (1-9) % Eos % (Auto) 1.0 (0-6) % Baso % (Auto) 0.8 (0-2) % Absolute Neuts (auto) 5.1 (1.5-7.7) 10^3/ul Absolute Lymphs (auto) 2.3 (1.0-4.8) 10^3/ul Absolute Monos (auto) 0.4 (0-0.8) 10^3/ul Absolute Eos (auto) 0.1 (0-0.6) 10^3/ul Absolute Basos (auto) 0.1 (0-0.2) 10^3/ul Absolute Nucleated RBC 0 10^3/ul Nucleated RBC % 0 ABG pH (7.35-7.45) ABG pCO2 (35-45) mmHg ABG pO2 (80-100) mmHg ABG HCO3 (19-31) mmol/L ABG O2 Saturation (95-98) % ABG Base Excess (-2.0-2.0) Methemoglobin 0.5 (LESS THAN 2) % Sodium 133 (133-145) mmol/L Potassium 3.3 L (3.5-5.0) mmol/L Chloride 103 (101-111) mmol/L Carbon Dioxide 23 (22-32) mmol/L Anion Gap 7 (2-11) mmol/L BUN 6 (6-24) mg/dL Creatinine 0.69 (0.51-0.95) mg/dL Est GFR ( Amer) 139.5 (>60) Est GFR (Non-Af Amer) 108.5 (>60) BUN/Creatinine Ratio 8.7 (8-20) Glucose 74 (70-100) mg/dL Lactic Acid 1.7 (0.5-2.0) mmol/L Calcium 8.4 L (8.6-10.3) mg/dL Magnesium 1.6 L (1.9-2.7) mg/dL Total Bilirubin 0.90 (0.2-1.0) mg/dL AST 15 (13-39) U/L ALT 8 (7-52) U/L Alkaline Phosphatase 40 (34-104) U/L Total Protein 6.6 (6.4-8.9) g/dL Albumin 3.7 (3.2-5.2) g/dL Globulin 2.9 (2-4) g/dL Albumin/Globulin Ratio 1.3 (1-3) TSH 28.71 H (0.34-5.60) mcIU/mL Beta HCG, Quant < 0.60 mIU/mL Urine Color Urine Appearance Urine pH (5-9) Ur Specific [place] (1.010-1.030) Urine Protein (Negative) Urine Ketones (Negative) Urine Blood (Negative) Urine Nitrate (Negative) Urine Bilirubin (Negative) Urine Urobilinogen (Negative) Ur Leukocyte Esterase (Negative) Urine WBC (Auto) (Absent) Urine RBC (Auto) (Absent) Ur Squamous Epith Cells (Absent) Urine Bacteria (Absent) Urine Glucose (Negative) Salicylates < 2.50 (<30) mg/dL Urine Opiates Screen (None Detect) Acetaminophen < 15 mcg/mL Ur Barbiturates Screen (None Detect) Ur Phencyclidine Scrn (None Detect) Ur Amphetamines Screen (None Detect) U Benzodiazepines Scrn (None Detect) Urine Cocaine Screen (None Detect) U Cannabinoids Screen (None Detect) Serum Alcohol < 10 (<10) mg/dL 09/10/17 09/10/17 09/11/17 Range/Units 23:43 23:43 00:04 WBC (3.5-10.8) 10^3/ul RBC (4.0-5.4) 10^6/ul Hgb (12.0-16.0) g/dl Hct (35-47) % MCV (80-97) fL MCH (27-31) pg MCHC (31-36) g/dl RDW (10.5-15) % Plt Count (150-450) 10^3/ul MPV (7.4-10.4) um3 Neut % (Auto) (38-83) % Lymph % (Auto) (25-47) % [place] % (Auto) (1-9) % Eos % (Auto) (0-6) % Baso % (Auto) (0-2) % Absolute Neuts (auto) (1.5-7.7) 10^3/ul Absolute Lymphs (auto) (1.0-4.8) 10^3/ul Absolute Monos (auto) (0-0.8) 10^3/ul Absolute Eos (auto) (0-0.6) 10^3/ul Absolute Basos (auto) (0-0.2) 10^3/ul Absolute Nucleated RBC 10^3/ul Nucleated RBC % ABG pH 7.45 (7.35-7.45) ABG pCO2 33 L (35-45) mmHg ABG pO2 101 H (80-100) mmHg ABG HCO3 24.5 (19-31) mmol/L ABG O2 Saturation 98.1 H (95-98) % ABG Base Excess -0.6 (-2.0-2.0) Methemoglobin (LESS THAN 2) % Sodium (133-145) mmol/L Potassium (3.5-5.0) mmol/L Chloride (101-111) mmol/L Carbon Dioxide (22-32) mmol/L Anion Gap (2-11) mmol/L BUN (6-24) mg/dL Creatinine (0.51-0.95) mg/dL Est GFR ( Amer) (>60) Est GFR (Non-Af Amer) (>60) BUN/Creatinine Ratio (8-20) Glucose (70-100) mg/dL Lactic Acid (0.5-2.0) mmol/L Calcium (8.6-10.3) mg/dL Magnesium (1.9-2.7) mg/dL Total Bilirubin (0.2-1.0) mg/dL AST (13-39) U/L ALT (7-52) U/L Alkaline Phosphatase (34-104) U/L Total Protein (6.4-8.9) g/dL Albumin (3.2-5.2) g/dL Globulin (2-4) g/dL Albumin/Globulin Ratio (1-3) TSH (0.34-5.60) mcIU/mL Beta HCG, Quant mIU/mL Urine Color Yellow Urine Appearance Cloudy Urine pH 7.0 (5-9) Ur Specific [place] 1.011 (1.010-1.030) Urine Protein Negative (Negative) Urine Ketones Negative (Negative) Urine Blood 1+ H (Negative) Urine Nitrate Negative (Negative) Urine Bilirubin Negative (Negative) Urine Urobilinogen Negative (Negative) Ur Leukocyte Esterase 3+ H (Negative) Urine WBC (Auto) 3+(>20/hpf) H (Absent) Urine RBC (Auto) 1+(3-5/hpf) H (Absent) Ur Squamous Epith Cells Present H (Absent) Urine Bacteria 1+ H (Absent) Urine Glucose Negative (Negative) Salicylates (<30) mg/dL Urine Opiates Screen None detected (None Detect) Acetaminophen mcg/mL Ur Barbiturates Screen None detected (None Detect) Ur Phencyclidine Scrn None detected (None Detect) Ur Amphetamines Screen None detected (None Detect) U Benzodiazepines Scrn None detected (None Detect) Urine Cocaine Screen None detected (None Detect) U Cannabinoids Screen None detected (None Detect) Serum Alcohol (<10) mg/dL Assess/Plan/Problems-Billing Miss Caceres is a 22 yo F who took an overdose of benadryl last evening and is now admitted for management of the overdose. - Patient Problems (1) Anticholinergic drug overdose Current Visit: Yes Status: Acute Code(s): T44.3X1A - POISONING BY OTH PARASYMPATH AND SPASMOLYTICS, ACC, INIT SNOMED Code(s): 763754575 Comment: The patient remains tachycardic and with dilated pupils. She is confused and at times hallucinating. Will continue IVF and prn ativan for agitation. She needs a psychiatry consult once her mental status is improved. Poision control continues to make recommendations. (2) DVT prophylaxis Current Visit: Yes Status: Acute Code(s): ICQ7143 - SNOMED Code(s): 303832217 Comment: ambulation (3) Full code status Current Visit: Yes Status: Acute Code(s): Z78.9 - OTHER SPECIFIED HEALTH STATUS SNOMED Code(s): 865004123
[2017-09-11] MEDS ORDERED: Docusate CAP* 100 MG PO PRN (12:10)
[2017-09-11] MEDS ORDERED: Haloperidol INJ IV/IM* 5 MG/ML AMP IM PRN (17:09)
[2017-09-12 14:00] VITALS: BP 109/54
--- NOTE | 2017-09-12 15:13 | PN ---
Subjective Date of Service: 09/12/17 Interval History: Pt is feeling well. She wants to leave despite me telling her I am concerned about her HR going up as high as it has with exertion (160-180bpm). She denies any issues at this time. Objective Active Medications: Acetaminophen (Tylenol Tab*) 650 mg PO Q6H PRN PRN Reason: FEVER/PAIN Docusate Sodium (Colace Cap*) 200 mg PO BID PRN PRN Reason: CONSTIPATION Haloperidol Lactate (Haldol Inj Iv/Im*) 5 mg IM Q6H PRN PRN Reason: AGITATION Lactated Ringer's (Lactated Ringers 1000 Ml Bag*) 1,000 mls @ 125 mls/hr IV PER RATE ORI Last Admin: 09/11/17 12:54 Dose: 125 mls/hr Lorazepam (Ativan Inj*) 1 mg IV Q6H PRN PRN Reason: AGITATION Last Admin: 09/11/17 10:01 Dose: 1 mg Vital Signs - 8 hr 09/12/17 09/12/17 09/12/17 07:47 08:00 12:04 Temperature 98.7 F Pulse Rate 93 91 Respiratory 14 16 19 Rate Blood Pressure 101/53 109/54 (mmHg) O2 Sat by Pulse 100 100 Oximetry Oxygen Devices in Use Now: None Appearance: Young female sitting on the edge of the bed, NAD Eyes: No Scleral Icterus Ears/Nose/Mouth/Throat: Mucous Membranes Moist Respiratory: Symmetrical Chest Expansion and Respiratory Effort, Clear to Auscultation Cardiovascular: NL Sounds; No Murmurs; No JVD, No Edema, - - minimally tachycardic Abdominal: NL Sounds; No Tenderness; No Distention Extremities: No Clubbing, Cyanosis Skin: No Rash or Ulcers, No Nodules or Sclerosis Neurological: Alert and Oriented x 3 Result Diagrams: 09/11/17 06:24 09/11/17 06:24 Additional Lab and Data: Lab Results 09/10/17 09/10/17 09/10/17 Range/Units 23:11 23:11 23:11 WBC 7.9 (3.5-10.8) 10^3/ul RBC 3.77 L (4.0-5.4) 10^6/ul Hgb 11.6 L (12.0-16.0) g/dl Hct 34 L (35-47) % MCV 91 (80-97) fL MCH 31 (27-31) pg MCHC 34 (31-36) g/dl RDW 14 (10.5-15) % Plt Count 278 (150-450) 10^3/ul MPV 9 (7.4-10.4) um3 Neut % (Auto) 63.7 (38-83) % Lymph % (Auto) 29.4 (25-47) % [place] % (Auto) 5.1 (1-9) % Eos % (Auto) 1.0 (0-6) % Baso % (Auto) 0.8 (0-2) % Absolute Neuts (auto) 5.1 (1.5-7.7) 10^3/ul Absolute Lymphs (auto) 2.3 (1.0-4.8) 10^3/ul Absolute Monos (auto) 0.4 (0-0.8) 10^3/ul Absolute Eos (auto) 0.1 (0-0.6) 10^3/ul Absolute Basos (auto) 0.1 (0-0.2) 10^3/ul Absolute Nucleated RBC 0 10^3/ul Nucleated RBC % 0 ABG pH (7.35-7.45) ABG pCO2 (35-45) mmHg ABG pO2 (80-100) mmHg ABG HCO3 (19-31) mmol/L ABG O2 Saturation (95-98) % ABG Base Excess (-2.0-2.0) Methemoglobin 0.5 (LESS THAN 2) % Sodium 133 (133-145) mmol/L Potassium 3.3 L (3.5-5.0) mmol/L Chloride 103 (101-111) mmol/L Carbon Dioxide 23 (22-32) mmol/L Anion Gap 7 (2-11) mmol/L BUN 6 (6-24) mg/dL Creatinine 0.69 (0.51-0.95) mg/dL Est GFR ( Amer) 139.5 (>60) Est GFR (Non-Af Amer) 108.5 (>60) BUN/Creatinine Ratio 8.7 (8-20) Glucose 74 (70-100) mg/dL Lactic Acid 1.7 (0.5-2.0) mmol/L Calcium 8.4 L (8.6-10.3) mg/dL Magnesium 1.6 L (1.9-2.7) mg/dL Total Bilirubin 0.90 (0.2-1.0) mg/dL AST 15 (13-39) U/L ALT 8 (7-52) U/L Alkaline Phosphatase 40 (34-104) U/L Total Protein 6.6 (6.4-8.9) g/dL Albumin 3.7 (3.2-5.2) g/dL Globulin 2.9 (2-4) g/dL Albumin/Globulin Ratio 1.3 (1-3) TSH 28.71 H (0.34-5.60) mcIU/mL Beta HCG, Quant < 0.60 mIU/mL Urine Color Urine Appearance Urine pH (5-9) Ur Specific [place] (1.010-1.030) Urine Protein (Negative) Urine Ketones (Negative) Urine Blood (Negative) Urine Nitrate (Negative) Urine Bilirubin (Negative) Urine Urobilinogen (Negative) Ur Leukocyte Esterase (Negative) Urine WBC (Auto) (Absent) Urine RBC (Auto) (Absent) Ur Squamous Epith Cells (Absent) Urine Bacteria (Absent) Urine Glucose (Negative) Salicylates < 2.50 (<30) mg/dL Urine Opiates Screen (None Detect) Acetaminophen < 15 mcg/mL Ur Barbiturates Screen (None Detect) Ur Phencyclidine Scrn (None Detect) Ur Amphetamines Screen (None Detect) U Benzodiazepines Scrn (None Detect) Urine Cocaine Screen (None Detect) U Cannabinoids Screen (None Detect) Serum Alcohol < 10 (<10) mg/dL 09/10/17 09/10/17 09/11/17 Range/Units 23:43 23:43 00:04 WBC (3.5-10.8) 10^3/ul RBC (4.0-5.4) 10^6/ul Hgb (12.0-16.0) g/dl Hct (35-47) % MCV (80-97) fL MCH (27-31) pg MCHC (31-36) g/dl RDW (10.5-15) % Plt Count (150-450) 10^3/ul MPV (7.4-10.4) um3 Neut % (Auto) (38-83) % Lymph % (Auto) (25-47) % [place] % (Auto) (1-9) % Eos % (Auto) (0-6) % Baso % (Auto) (0-2) % Absolute Neuts (auto) (1.5-7.7) 10^3/ul Absolute Lymphs (auto) (1.0-4.8) 10^3/ul Absolute Monos (auto) (0-0.8) 10^3/ul Absolute Eos (auto) (0-0.6) 10^3/ul Absolute Basos (auto) (0-0.2) 10^3/ul Absolute Nucleated RBC 10^3/ul Nucleated RBC % ABG pH 7.45 (7.35-7.45) ABG pCO2 33 L (35-45) mmHg ABG pO2 101 H (80-100) mmHg ABG HCO3 24.5 (19-31) mmol/L ABG O2 Saturation 98.1 H (95-98) % ABG Base Excess -0.6 (-2.0-2.0) Methemoglobin (LESS THAN 2) % Sodium (133-145) mmol/L Potassium (3.5-5.0) mmol/L Chloride (101-111) mmol/L Carbon Dioxide (22-32) mmol/L Anion Gap (2-11) mmol/L BUN (6-24) mg/dL Creatinine (0.51-0.95) mg/dL Est GFR ( Amer) (>60) Est GFR (Non-Af Amer) (>60) BUN/Creatinine Ratio (8-20) Glucose (70-100) mg/dL Lactic Acid (0.5-2.0) mmol/L Calcium (8.6-10.3) mg/dL Magnesium (1.9-2.7) mg/dL Total Bilirubin (0.2-1.0) mg/dL AST (13-39) U/L ALT (7-52) U/L Alkaline Phosphatase (34-104) U/L Total Protein (6.4-8.9) g/dL Albumin (3.2-5.2) g/dL Globulin (2-4) g/dL Albumin/Globulin Ratio (1-3) TSH (0.34-5.60) mcIU/mL Beta HCG, Quant mIU/mL Urine Color Yellow Urine Appearance Cloudy Urine pH 7.0 (5-9) Ur Specific [place] 1.011 (1.010-1.030) Urine Protein Negative (Negative) Urine Ketones Negative (Negative) Urine Blood 1+ H (Negative) Urine Nitrate Negative (Negative) Urine Bilirubin Negative (Negative) Urine Urobilinogen Negative (Negative) Ur Leukocyte Esterase 3+ H (Negative) Urine WBC (Auto) 3+(>20/hpf) H (Absent) Urine RBC (Auto) 1+(3-5/hpf) H (Absent) Ur Squamous Epith Cells Present H (Absent) Urine Bacteria 1+ H (Absent) Urine Glucose Negative (Negative) Salicylates (<30) mg/dL Urine Opiates Screen None detected (None Detect) Acetaminophen mcg/mL Ur Barbiturates Screen None detected (None Detect) Ur Phencyclidine Scrn None detected (None Detect) Ur Amphetamines Screen None detected (None Detect) U Benzodiazepines Scrn None detected (None Detect) Urine Cocaine Screen None detected (None Detect) U Cannabinoids Screen None detected (None Detect) Serum Alcohol (<10) mg/dL Assess/Plan/Problems-Billing Miss Caceres is a 22 yo F who took an overdose of benadryl last evening and is now admitted for management of the overdose. - Patient Problems (1) Anticholinergic drug overdose Current Visit: Yes Status: Acute Code(s): T44.3X1A - POISONING BY OTH PARASYMPATH AND SPASMOLYTICS, ACC, INIT SNOMED Code(s): 259005390 Comment: The patient was seen by psychiatry this am and it was decided the patient could be discharged home. She will follow up with her usual therapist once she gets home to [place]. Her father will be in town until she goes home. The patient's HR is minimally tachycardic at rest but when she gets up she becomes quite tachycardic to 160-180's. She refuses to stay for further IVF and monitoring stating she needs to get to her final exam tomorrow. She has signed out against medical advice. (2) DVT prophylaxis Current Visit: Yes Status: Acute Code(s): AZK8392 - SNOMED Code(s): 985380069 Comment: ambulation (3) Full code status Current Visit: Yes Status: Acute Code(s): Z78.9 - OTHER SPECIFIED HEALTH STATUS SNOMED Code(s): 711569666
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
--- NOTE | 2017-09-12 22:14 | DS ---
CC: [facility] * DISCHARGE SUMMARY: DATE OF ADMISSION: 09/11/17 DATE OF DISCHARGE: 09/12/17 PRIMARY CARE PROVIDER: [facility]. PRINCIPAL DIAGNOSIS: Intentional Benadryl overdose. DISCHARGE MEDICATIONS: 1. Percocet 5/325 one tab p.o. q.4 hours p.r.n. pain. 2. Zofran ODT 4 mg p.o. q.6 hours p.r.n. nausea. HOSPITAL COURSE: Ms. Caceres is a 22-year-old [place] student, who presented to the emergency room on 09/10/17 after ingesting at least 40 tablets of Benadryl 25 mg a piece. In the emergency room, the patient was noted to be disoriented. She was unable to give any significant information; however, her roommate was able to provide information. The patient was admitted to the telemetry floor. She received aggressive IV fluid hydration and symptomatic management with Ativan. The patient did become quite agitated on the evening of 09/11/17, but ultimately by 09/12/17 was much more appropriate. The patient was seen in consultation by Dr. Price from Psychiatry, who felt that at this point the patient could be discharged home. He felt that because the patient was remorseful and forward thinking, the patient could safely go and not need an inpatient stay on the behavioral services unit. He did confirm that the patient has therapist at home that she will follow up with. The patient's father has flown in from [place] and will be in town until he and the patient fly back to [place] for winter break. The patient, however, on the day of discharge was noted to continue to still be having episodes of tachycardia with minimal exertion. Her heart rate would go to 160 or 180 again with minimal exertion. Poison Control has not yet closed her case. At this point, my recommendation to the patient is to stay in the hospital, receive more IV fluids, and be monitored further. The patient refuses and signed out against medical advice. FOLLOWUP CONCERNS: The patient is being discharged home today, 09/12/17. This is against medical advice after having a discussion with the patient in front of her father about my concerns and the risks of being discharged. The patient still wishes to leave [place]. She does have capacity to make this decision at this time. CONDITION ON DISCHARGE: Stable, but concerning due to her ongoing episodes of tachycardia. DIET: Regular. The patient has been asked to follow up with her primary care provider when she returns home to [place]. TIME SPENT: Thirty-five minutes was spent discharging this patient. [id number]/[facility] #: [id number] HILARIO
== END 2017-09-12 15:00 | disposition left against medical advice (07) | DRG 918 ==
LOC: ED 22:01 → MEDTELE 09-11 02:02 → OBSVTOIN 09-12 01:00
PROVIDERS: ADMIT Hospitalist; ATTEND Hospitalist
DX: T45.0X2A Poisoning by antiallergic and antiemetic drugs, intentional self-harm, initial encounter (principal); F34.1 Dysthymic disorder; F32.9 Major depressive disorder, single episode, unspecified; R41.0 Disorientation, unspecified; Y92.9 Unspecified place or not applicable; X58.XXXA Exposure to other specified factors, initial encounter; Z88.2 Allergy status to sulfonamides; Z91.018 Allergy to other foods; R00.0 Tachycardia, unspecified; F43.10 Post-traumatic stress disorder, unspecified
CPT/HCPCS: 36415; 36600; 70450; 80048; 80053; 80307; 80320; 80329; 81003; 81015; 82803; 83050; 83605; 83735; 84443; 84702; 85025; 85027; 87086; 93005; A9270-GY; G0480; J2060; J3475